=== PATIENT | female | born 1955 | race Caucasian/White ===

== ENCOUNTER 2024-03-15 22:57 | Emergency (ER) | payer OTHER ==
[~2024-03-15] VITALS: Ht 167.6 cm; Wt 54.5 kg
[~2024-03-15 22:57] MED LIST: CEPH; CEPH-585 PO; NO HOME MEDS
[2024-03-15 23:04] VITALS: BP 152/89; PULSE 64; RESP 16; TEMP 97.9; O2SAT 98
[2024-03-16 00:39] LABS: ALBUMIN 3.7 G/DL (3.4-5.0); ANION GAP 6 (8-16); BASOPHILS # (AUTO) 0.1 X10'3 (0-0.2); BASOPHILS % (AUTO) 1.1 % (0-1); BLOOD UREA NITROGEN 16 MG/DL (7-18); CALCIUM 9.3 MG/DL (8.5-10.1); CHLORIDE 108 MMOL/L (99-107); EOSINOPHILS # (AUTO) 0.1 X10'3 (0-0.9); GLUCOSE 97 MG/DL (70-104); HEMATOCRIT 41.1 % (35.0-45.0); HEMOGLOBIN 13.7 g/dl (12.0-16.0); LYMPHOCYTES # (AUTO) 1.6 X10'3 (1.1-4.8); LYMPHOCYTES % (AUTO) 33.1 % (21-51); MEAN CORPUSCULAR HEMOGLOBIN 31.1 PG (27.0-31.0); MEAN CORPUSCULAR HGB CONC 33.3 g/dL (33.0-36.5); MEAN CORPUSCULAR VOLUME 93.4 FL (78-98); MONOCYTES # (AUTO) 0.5 X10'3 (0-0.9); MONOCYTES % (AUTO) 9.4 % (2-12); NEUTROPHILS # (AUTO) 2.6 X10'3 (1.8-7.7); NEUTROPHILS % (AUTO) 54.4 % (42-75); PLATELET COUNT 161 X10'3 (140-440); POTASSIUM 3.4 MMOL/L (3.5-5.1); RED CELL DISTRIBUTION WIDTH 14.8 % (11.5-14.5); SODIUM 144 MMOL/L (135-145); TOTAL CARBON DIOXIDE 29.9 MMOL/L (24-32); WHITE BLOOD COUNT 4.8 X10'3 (4.5-11.0); eCRCL 56 ML/MIN; eGFR 71 ML/MIN
== END 2024-03-16 01:59 | disposition left against medical advice (07) ==
LOC: ER 22:58
DX: R45.6 Violent behavior (principal); Z53.21 Procedure and treatment not carried out due to patient leaving prior to being seen by health care provider
CPT/HCPCS: 36415; 80048; 85025

== ENCOUNTER 2025-05-30 09:59 | Emergency (ER) | payer MEDICARE, OTHER ==
[~2025-05-30] VITALS: Ht 170.2 cm; Wt 51.8 kg
[~2025-05-30 09:59] MED LIST changes: -CEPH-585 PO
[2025-05-30 10:04] VITALS: TEMP 98.8
[2025-05-30 10:50] LABS: MEAN PLATELET VOLUME 8.4 FL (7.4-10.4); RED CELL DISTRIBUTION WIDTH 14.8 % (11.5-14.5)
[2025-05-30] MEDS: normal saline 1000ML IV soln IVB ONE (11:17)
[2025-05-30 11:40] LABS: CREATININE 0.96 MG/DL (0.40-0.90); TOTAL CARBON DIOXIDE 28.4 MMOL/L (24-32); eCRCL 44 ML/MIN; eGFR 57 ML/MIN
--- NOTE | 2025-05-30 11:46 | RADIOLOGY REPORT ---
DI CHEST,SINGLE VIEW, HISTORY: aloc COMPARISON: DI CHEST,SINGLE VIEW on DOS: 02/01/24, CHEST,SINGLE VIEW on DOS: 12/22/21 DI CHEST,SINGLE VIEW on DOS: 02/01/24, CHEST,SINGLE VIEW on DOS: 12/22/21 TECHNICAL DATA: 1 view of the chest was obtained. FINDINGS: Lines and tubes: None Cardiomediastinal silhouette: normal Pulmonary vasculature: normal Lung expansion: normal Lung airspace: normal Lung interstitium: normal Pleura: normal Pneumothorax: no Bones: Unremarkable Other: no IMPRESSION: No acute intrathoracic abnormality.
[2025-05-30 12:41] LABS: LEUKOCYTE ESTERASE ,URINE NEGATIVE (Neg); NITRITES, URINE NEGATIVE (Neg); OCCULT BLOOD,URINE NEGATIVE (Neg)
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
--- NOTE | 2025-05-30 12:51 | ELECTROCARDIOGRAPH REPORT ---
[facility] Test Date: 2025-05-30 Test Time: 12:50:34 Pat Name: LUNA ESPINAL Department: [facility]-ER Patient ID: 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 Reading MD: Dr. Neo Kirby Measurements Intervals [place] Rate: 46 P: 0 CA: 0 QRS: 55 QRSD: 100 T: 55 QT: 495 QTc: 433 Interpretive Statements Junctional rhythm RSR' in V1 or V2, probably normal variant Electronically Signed On 05-30-2025 22:27:[address] Neo Kirby Please click the below link to view image of tracing.
[2025-05-30 12:54] LABS: UA COLLECTION TYPE CLN CATCH MIDSTREAM
[2025-05-30 13:46] VITALS: BP 166/99; PULSE 58; RESP 18; O2SAT 100
--- NOTE | 2025-05-30 14:31 | RADIOLOGY REPORT ---
CLINICAL HISTORY: aloc TECHNIQUE: Helical imaging carried out from skull base to vertex without intravenous contrast. This e xam was performed according to our departmental dose optimization program. Up-to-date CT equipment an d radiation dose reduction techniques are utilized as appropriate. CTDIVol: 48.82 mGy DLP: 48.45 mGy-cm WID: COMPARISON: CT CT HEAD on DOS: 02/01/24, MRI HEAD on DOS: 12/22/21, CT HEAD on DOS: 12/22/21 FINDINGS: Generalized cerebral volume loss with concordant prominence of the subarachnoid spaces and ventricles . Mild patchy low attenuation in the cerebral white matter consistent with nonspecific white matter d isease. There is no midline shift or mass effect. The kumar white matter interfaces are maintained. T he basal cisterns are patent. There is no evidence of acute intracranial hemorrhage or extra-axial fl uid collection. The mastoid air cells and visualized paranasal sinuses are well-aerated. IMPRESSION: No acute intracranial abnormality. Generalized cerebral volume loss and mild chronic microvascular ischemic change.
[2025-05-30] MEDS ORDERED: RISP0.253 PO (15:05)
== END 2025-05-30 15:05 | disposition home or self-care (01) ==
LOC: ER 09:59
DX: R41.0 Disorientation, unspecified (principal); F03.90 Unspecified dementia, unspecified severity, without behavioral disturbance, psychotic disturbance, mood disturbance, and anxiety; Z79.899 Other long term (current) drug therapy
CPT/HCPCS: 36415; 70450; 71045; 80053; 81003; 83690; 85025; 93005; 99285; J7030